=== PATIENT | male | born 1945 | race Caucasian/White ===

== ENCOUNTER 2018-02-11 14:43 | Observation (INO) | payer MEDICARE, BC ==
[2018-02-11] MEDS ORDERED: Sodium Chloride 0.9% 1,000 ML IV SCH (15:00)
--- NOTE | 2018-02-11 15:41 | EDM.PDOC ---
ED HPI GENERAL MEDICAL PROBLEM - General Chief Complaint: Cardiovascular Problem Stated Complaint: MEDICAL VIA AMBULANCE Time Seen by Provider: 02/11/18 14:55 Source of Information: Reports: Patient History Limitations: Reports: No Limitations - History of Present Illness INITIAL COMMENTS - FREE TEXT/NARRATIVE: pt passed out or [place] a near [place], He played golf and felt fine. He came in and started to feel strange. He got sweaty and tried to go to the [place] and fell before he got there.He never had any chest pain , Onset: Today Duration: Minutes:, Other (pt is feeling well at this time. ) Location: Reports: Other (pt had a near syncopal episode. ) Associated Symptoms: Reports: No Other Symptoms Treatments [employer]: Reports: Aspirin, Other (see below) Other Treatments [employer]: 324mg - Related Data Allergies Allergy/AdvReac Type Severity Reaction Status Date / Time monosodium glutamate Allergy Anaphylactic Verified 02/11/18 14:52 Shock Home Meds: Home Meds Allopurinol [Zyloprim] 100 mg PO DAILY 03/13/16 [History] Aspirin [Adult Low Dose Aspirin EC] 81 mg PO DAILY 03/13/16 [History] Mirtazapine [Remeron] 15 mg PO DAILY 03/13/16 [History] Sertraline [Zoloft] 100 mg PO DAILY 03/13/16 [History] Simvastatin [Zocor] 40 mg PO DAILY 03/13/16 [History] Vitamin B Complex 1 each PO DAILY 03/13/16 [History] metFORMIN [Glucophage] 1,000 mg PO DAILY 03/13/16 [History] Gabapentin [Neurontin] 300 mg PO DAILY 02/11/18 [History] Past Medical History HEENT History: Reports: Allergic Rhinitis, Hard of Hearing, Impaired Vision Cardiovascular History: Reports: Bypass, CAD, High Cholesterol Musculoskeletal History: Reports: Fracture Psychiatric History: Reports: Depression, PTSD Endocrine/Metabolic History: Reports: Diabetes, Type II Hematologic History: Reports: Blood Transfusion(s) - Infectious Disease History Infectious Disease History: Reports: Chicken Pox, Measles, Mumps - Past Surgical History Cardiovascular Surgical History: Reports: Coronary Artery Bypass GI Surgical History: Reports: Colonoscopy, Hernia, Inguinal Musculoskeletal Surgical History: Reports: Hip Replacement, ORIF Social & Family History - Tobacco Use Smoking Status *Q: Light Tobacco Smoker Years of Tobacco use: 20 Packs/Tins Daily: 0 Second Hand Smoke Exposure: No - Caffeine Use Caffeine Use: Reports: Coffee - Alcohol Use Days Per Week of Alcohol Use: 1 Number of Drinks Per Day: 1 Total Drinks Per Week: 1 - Recreational Drug Use Recreational Drug Use: No ED ROS GENERAL - Review of Systems Review Of Systems: See Below Constitutional: Reports: No Symptoms HEENT: Reports: No Symptoms Respiratory: Reports: No Symptoms Cardiovascular: Reports: No Symptoms Endocrine: Reports: No Symptoms GI/Abdominal: Reports: No Symptoms : Reports: No Symptoms Musculoskeletal: Reports: No Symptoms Skin: Reports: No Symptoms Neurological: Reports: Other (pt had a near syncopal episode. ) Psychiatric: Reports: No Symptoms ED EXAM, GENERAL - Physical Exam Exam: See Below Free Text/Narrative:: pt had a near [place]opal episode [place]. He had no chest pain he did get sweaty. Exam Limited By: No Limitations General Appearance: Alert, No Apparent Distress, Other (pupils are equal and resctive. ) Ears: Normal TMs Ear Exam: Bilateral Ear: Auricle Normal, Canal Normal, TM normal Nose: Normal Inspection Throat/Mouth: Normal Inspection Head: Atraumatic Neck: Normal Inspection Respiratory/Chest: No Respiratory Distress Cardiovascular: Regular Rate, Rhythm GI/Abdominal: Soft, Non-Tender (Male) Exam: Deferred Rectal (Males) Exam: Deferred Extremities: Normal Inspection Neurological: Alert, Oriented, Normal Cognition Psychiatric: Normal Affect Course - Vital Signs Last Recorded V/S: Last Vital Signs Temp 35.8 C 02/12/18 07:08 Pulse 76 02/12/18 07:08 Resp 16 02/12/18 07:08 BP 131/89 02/12/18 07:08 Pulse Ox 96 02/12/18 07:08 Orthostatic Blood Pressure [ 115/67 Standing] Orthostatic Blood Pressure [ 132/60 Sitting] Orthostatic Blood Pressure [ 123/70 Supine] - Orders/Labs/Meds Labs: Laboratory Tests 02/11/18 02/11/18 02/11/18 Range/Units 14:45 14:45 16:28 WBC 8.3 (4.5-11.0) K/uL RBC 4.48 (4.30-5.90) M/uL Hgb 13.8 (12.0-15.0) g/dL Hct 41.6 (40.0-54.0) % MCV 93 (80-98) fL MCH 31 (27-31) pg MCHC 33 (32-36) % Plt Count 233 (150-400) K/uL Neut % (Auto) 61 (36-66) % Lymph % (Auto) 29 (24-44) % [place] % (Auto) 8 H (2-6) % Eos % (Auto) 2 (2-4) % Baso % (Auto) 1 (0-1) % Sodium 142 (140-148) mmol/L Potassium 4.3 (3.6-5.2) mmol/L Chloride 105 (100-108) mmol/L Carbon Dioxide 23 (21-32) mmol/L Anion Gap 14.5 H (5.0-14.0) mmol/L BUN 11 (7-18) mg/dL Creatinine 1.3 (0.8-1.3) mg/dL Est Cr Clr Drug Dosing 53.03 mL/min Estimated GFR (MDRD) 54 L (>60) Glucose 148 H (74-106) mg/dL Calcium 8.5 (8.5-10.1) mg/dL Total Bilirubin 0.5 (0.2-1.0) mg/dL AST 18 (15-37) U/L ALT 18 (12-78) U/L Alkaline Phosphatase 57 (46-116) U/L Creatine Kinase 95 (39-308) U/L Troponin I 0.037 (0.000-0.056) ng/mL Total Protein 7.4 (6.4-8.2) g/dL Albumin 3.6 (3.4-5.0) g/dL Globulin 3.8 H (2.3-3.5) g/dL Albumin/Globulin Ratio 1.0 L (1.2-2.2) Urine Color Yellow Urine Appearance Slightly cloudy Urine pH 5.0 (4.5-8.0) Ur Specific [place] 1.025 (1.008-1.030) Urine Protein Trace (NEGATIVE) mg/dL Urine Glucose (UA) 250 H (NEGATIVE) mg/dL Urine Ketones Negative (NEGATIVE) mg/dL Urine Occult Blood Negative (NEGATIVE) Urine Nitrite Negative (NEGAITVE) Urine Bilirubin Small (NEGATIVE) Urine Urobilinogen 1 (NORMAL) mg/dL Ur Leukocyte Esterase Negative (NEGATIVE) Urine RBC 0-5 (0-5) Urine WBC Not seen (0-5) Ur Epithelial Cells Few Amorphous Sediment Moderate Urine Bacteria Moderate Urine Mucus Moderate Meds: Medications Discontinued Medications Generic Name Dose Route Start Last Admin Trade Name Freq PRN Reason Stop Dose Admin Acetaminophen 650 mg 02/11/18 18:06 Tylenol PO Q4H PRN Pain (Mild 1-3)/fever Allopurinol 100 mg 02/12/18 09:00 02/12/18 08:16 Zyloprim PO Not Given DAILY [facility] Aspirin 81 mg 02/12/18 09:00 02/12/18 08:16 Halfprin PO Not Given DAILY [facility] Dextrose 15 gm 02/11/18 18:06 Glutose 15 PO ONETIME PRN Hypoglycemia Dextrose/Water 50 ml 02/11/18 18:06 Dextrose 50% In Water IV ONETIME PRN Hypoglycemia Gabapentin 300 mg 02/12/18 09:00 02/12/18 08:16 Neurontin PO Not Given DAILY [facility] Sodium Chloride 1,000 mls @ 200 mls/hr 02/11/18 15:00 02/11/18 15:09 Normal Saline IV 200 mls/hr ASDIRECTED [facility] Administration Insulin Aspart 0 unit 02/11/18 20:00 02/12/18 07:31 Novolog SUBCUT Not Given QIDACANDBED [facility] Protocol Mirtazapine 15 mg 02/12/18 21:00 Remeron PO BEDTIME [facility] Non-Formulary Medication 1,000 mg 02/12/18 09:00 02/12/18 08:16 Metformin [Glucophage] PO Not Given DAILY [facility] Ondansetron HCl 4 mg 02/11/18 18:06 Zofran IV Q4H PRN Nausea/Vomiting Sertraline HCl 100 mg 02/12/18 09:00 02/12/18 08:16 Zoloft PO Not Given DAILY [facility] Simvastatin 40 mg 02/12/18 21:00 Zocor PO BEDTIME [facility] Sodium Chloride 10 ml 02/11/18 18:06 Saline Flush FLUSH ASDIRECTED PRN Keep Vein Open Vitamin B Complex 1 each 02/12/18 09:00 02/12/18 08:16 Vitamin B Complex PO Not Given DAILY [facility] - Re-Assessments/Exams Free Text/Narrative Re-Assessment/Exam: 02/11/18 16:27 pt had normal cardiac enzymes, he was mildly dehydrated. A cat scan of the head was obtained. His chest xray was normal. 02/14/18 07:16 The cat scan of the head was normal Departure - Departure Time of Disposition: 16:28 Disposition: Admitted As Inpatient 66 Condition: Fair Clinical Impression: Near syncope, Dehydration
--- NOTE | 2018-02-11 18:03 | PCM.HP ---
H&P History of Present Illness - General Date of Service: 02/11/18 Admit Problem/Dx: Admission Diagnosis/Problem Admission Diagnosis/Problem Vasovagal near-syncope Source of Information: Patient, Family, Provider, RN Notes Reviewed History Limitations: Reports: No Limitations - History of Present Illness Initial Comments - Free Text/Narative: This patient is a 72-year-old gentleman who is admitted to observation status for further evaluation and management of a near syncopal episode. He had traveled from [place] yesterday, reported that he did not have much to eat or drink on the plane or after he arrived home. This morning he got up and took his medications, had a cup of cappuccino for breakfast and then golfed 18 holes. While he was golfing he had one beer and then went [facility] [place] [employer] afterwards and had a second beer. He does report that the clubhouse was very warm, while he was sitting and having his. Began to feel very flushed and sweaty and weak. He got up to go to the bathroom, but because of lightheadedness weakness he fell to the floor. He does not think that he ever lost consciousness during this episode. He denies any previous history of syncopal episodes. He does have a known history of coronary artery disease and is status post coronary artery bypass surgery done approximately 4 years ago. He denies any symptoms of chest pain or pressure over the past few days or related to the episode of near syncope. - Related Data Allergies/Adverse Reactions: Allergies Allergy/AdvReac Type Severity Reaction Status Date / Time monosodium glutamate Allergy Anaphylactic Verified 02/11/18 14:52 Shock Home Medications: Home Meds Allopurinol [Zyloprim] 100 mg PO DAILY 03/13/16 [History] Aspirin [Adult Low Dose Aspirin EC] 81 mg PO DAILY 03/13/16 [History] Mirtazapine [Remeron] 15 mg PO DAILY 03/13/16 [History] Sertraline [Zoloft] 100 mg PO DAILY 03/13/16 [History] Simvastatin [Zocor] 40 mg PO DAILY 03/13/16 [History] Vitamin B Complex 1 each PO DAILY 03/13/16 [History] metFORMIN [Glucophage] 1,000 mg PO DAILY 03/13/16 [History] Gabapentin [Neurontin] 300 mg PO DAILY 02/11/18 [History] Past Medical History HEENT History: Reports: Allergic Rhinitis, Hard of Hearing, Impaired Vision Cardiovascular History: Reports: Bypass, CAD, High Cholesterol Musculoskeletal History: Reports: Fracture Psychiatric History: Reports: Depression, PTSD Endocrine/Metabolic History: Reports: Diabetes, Type II Hematologic History: Reports: Blood Transfusion(s) - Infectious Disease History Infectious Disease History: Reports: Chicken Pox, Measles, Mumps - Past Surgical History Cardiovascular Surgical History: Reports: Coronary Artery Bypass GI Surgical History: Reports: Colonoscopy, Hernia, Inguinal Musculoskeletal Surgical History: Reports: Hip Replacement, ORIF Social & Family History - Tobacco Use Smoking Status *Q: Light Tobacco Smoker Years of Tobacco use: 20 Packs/Tins Daily: 0 Second Hand Smoke Exposure: No - Caffeine Use Caffeine Use: Reports: Coffee - Alcohol Use Days Per Week of Alcohol Use: 1 Number of Drinks Per Day: 1 Total Drinks Per Week: 1 - Recreational Drug Use Recreational Drug Use: No H&P Review of Systems - Review of Systems: Review Of Systems: See Below General: Reports: Weakness, Diaphoresis. Denies: Fever, Chills HEENT: Reports: No Symptoms Pulmonary: Reports: No Symptoms Cardiovascular: Reports: Lightheadedness (Near-syncope). Denies: Chest Pain, Palpitations, Dyspnea on Exertion, Orthopnea, PND, Edema Gastrointestinal: Reports: No Symptoms Genitourinary: Reports: No Symptoms Musculoskeletal: Reports: No Symptoms Skin: Reports: No Symptoms Psychiatric: Reports: No Symptoms Neurological: Reports: No Symptoms Hematologic/Lymphatic: Reports: No Symptoms Immunologic: Reports: No Symptoms Exam - Exam Exam: See Below - Vital Signs Vital Signs: Last Vital Signs Temp 97.6 F 02/11/18 14:51 Pulse 69 02/11/18 16:27 Resp 15 02/11/18 16:27 BP 121/59 L 02/11/18 16:27 Pulse Ox 97 02/11/18 16:27 Orthostatic Blood Pressure [ 115/67 Standing] Orthostatic Blood Pressure [ 132/60 Sitting] Orthostatic Blood Pressure [ 123/70 Supine] Weight: 170 lb - Exam General: Alert, Oriented, Cooperative HEENT: Conjunctiva Clear, Hearing Intact, Mucosa Moist & [place], Normal Nasal Septum, Posterior Pharynx Clear, Pupils Equal, Pupils Reactive Neck: Supple, Trachea Midline, +2 Carotid Pulse wo Bruit Lungs: Clear to Auscultation, Normal Respiratory Effort Cardiovascular: Regular Rate, Regular Rhythm, Normal S1, Normal S2. No: Systolic Murmur, Diastolic Murmur GI/Abdominal Exam: Soft, Non-Tender, No Organomegaly, No Distention Extremities: Non-Tender, No Pedal Edema Skin: Warm, Dry, Intact Neurological: Cranial Nerves Intact, Strength Equal Bilateral, Normal Speech, Normal Tone, Sensation Intact. No: Focal Deficit Neuro Extensive - Mental Status: Alert, Oriented x3, Normal Mood/Affect, Normal Cognition, Memory Intact - Patient Data Lab Results Last 24 hrs: Laboratory Results - last 24 hr 02/11/18 02/11/18 02/11/18 Range/Units 14:45 14:45 16:28 WBC 8.3 (4.5-11.0) K/uL RBC 4.48 (4.30-5.90) M/uL Hgb 13.8 (12.0-15.0) g/dL Hct 41.6 (40.0-54.0) % MCV 93 (80-98) fL MCH 31 (27-31) pg MCHC 33 (32-36) % Plt Count 233 (150-400) K/uL Neut % (Auto) 61 (36-66) % Lymph % (Auto) 29 (24-44) % [place] % (Auto) 8 H (2-6) % Eos % (Auto) 2 (2-4) % Baso % (Auto) 1 (0-1) % Sodium 142 (140-148) mmol/L Potassium 4.3 (3.6-5.2) mmol/L Chloride 105 (100-108) mmol/L Carbon Dioxide 23 (21-32) mmol/L Anion Gap 14.5 H (5.0-14.0) mmol/L BUN 11 (7-18) mg/dL Creatinine 1.3 (0.8-1.3) mg/dL Est Cr Clr Drug Dosing 53.03 mL/min Estimated GFR (MDRD) 54 L (>60) Glucose 148 H (74-106) mg/dL Calcium 8.5 (8.5-10.1) mg/dL Total Bilirubin 0.5 (0.2-1.0) mg/dL AST 18 (15-37) U/L ALT 18 (12-78) U/L Alkaline Phosphatase 57 (46-116) U/L Creatine Kinase 95 (39-308) U/L Troponin I 0.037 (0.000-0.056) ng/mL Total Protein 7.4 (6.4-8.2) g/dL Albumin 3.6 (3.4-5.0) g/dL Globulin 3.8 H (2.3-3.5) g/dL Albumin/Globulin Ratio 1.0 L (1.2-2.2) Urine Color Yellow Urine Appearance Slightly cloudy Urine pH 5.0 (4.5-8.0) Ur Specific [place] 1.025 (1.008-1.030) Urine Protein Trace (NEGATIVE) mg/dL Urine Glucose (UA) 250 H (NEGATIVE) mg/dL Urine Ketones Negative (NEGATIVE) mg/dL Urine Occult Blood Negative (NEGATIVE) Urine Nitrite Negative (NEGAITVE) Urine Bilirubin Small (NEGATIVE) Urine Urobilinogen 1 (NORMAL) mg/dL Ur Leukocyte Esterase Negative (NEGATIVE) Urine RBC 0-5 (0-5) Urine WBC Not seen (0-5) Ur Epithelial Cells Few Amorphous Sediment Moderate Urine Bacteria Moderate Urine Mucus Moderate Result Diagrams: 02/11/18 14:45 02/11/18 14:45 *Q Meaningful Use (ADM) - VTE Risk Assess *Q Each Risk Factor Represents 1 Point: None Total Score 1 Point Risk Factors: 0 Each Risk Factor Represents 2 Points: Age 60 - 74 Years Total Score 2 Point Risk Factors: 2 Each Risk Factor Represents 3 Points: None Total Score 3 Point Risk Factors: 0 Each Risk Factor Represents 5 Points: None Total Score 5 Point Risk Factors: 0 Venous Thromboembolism Risk Factor Score *Q: 2 Problem List Initiated/Reviewed/Updated: Yes Orders Last 24hrs: Active Orders 24 hr Category Date Time Status Patient Status Manage Transfer [TRANSFER] Routine ADT 02/11/18 17:52 Ordered EKG Documentation Completion [RC] ASDIRECTED Care 02/11/18 14:45 Active Orthostatic Vital Signs [RC] ASDIRECTED Care 02/11/18 15:40 Active Chest 1V Frontal [CR] Stat Exams 02/11/18 14:53 Taken Head wo Cont [CT] Stat Exams 02/11/18 15:41 Taken UA W/MICROSCOPIC [URIN] Urgent Lab 02/11/18 16:28 Ordered Sodium Chloride 0.9% [Normal Saline] 1,000 ml Med 02/11/18 15:00 Active IV ASDIRECTED Resuscitation Status Routine Resus Stat 02/11/18 17:59 Ordered EKG 12 Lead [EK] Routine Ther 02/11/18 14:45 Ordered Medication Orders Sodium Chloride (Normal Saline) 1,000 mls @ 200 mls/hr IV ASDIRECTED CHRISTIN Last Admin: 02/11/18 15:09 Dose: 200 mls/hr Assessment/Plan Comment:: ASSESSMENT AND PLAN VASOVAGAL NEAR SYNCOPAL EPISODE-by description this sounds to be vasovagal, including symptoms of flushing and diaphoresis associated with weakness. Dehydration and hypoglycemia may have also been contributing factors. He denied any symptoms of chest pain or pressure. -Cardiac monitoring -Orthostatic vital signs -Serial troponin levels HISTORY OF CORONARY ARTERY DISEASE-currently asymptomatic TYPE 2 DIABETES MELLITUS -Continue current therapy with metformin -Low-dose sliding scale NovoLog -4 times a day glucometers MAINTENANCE ISSUES -DVT prophylaxis;Ambulation -GI prophylaxis;Not indicated -Kovacs catheter;Not indicated -Nutrition;Consistent carb diet -Nicotine dependence;Not required CODE STATUS-FULL CODE ADMISSION STATUS-this patient will be admitted to observation status, expect no more than a one night hospital stay for evaluation and management of problems as outlined above. DISPOSITION-anticipate discharge to home after the hospital stay. PRIMARY CARE PROVIDER-
[2018-02-11] MEDS ORDERED: Glucose Gel 15 GM in 37.5 GM Tube PO PRN (18:06)
[2018-02-11] MEDS ORDERED: Sodium Chloride 0.9% 10 ML Syringe FLUSH PRN (18:06)
[2018-02-11] MEDS ORDERED: Ondansetron 4 MG/2 ML SDV IV PRN (18:06)
[2018-02-11] MEDS ORDERED: 50% Dextrose in Water 50 ML Syringe IV PRN (18:06)
[2018-02-11] MEDS ORDERED: Acetaminophen 325 MG Tab PO PRN (18:06)
[2018-02-11] MEDS: Insulin Aspart 100 Units/ML 3 ML Pen SUBCUT SCH (21:07)
[2018-02-12 07:10] VITALS: BP 131/89
[2018-02-12] MEDS: Insulin Aspart 100 Units/ML 3 ML Pen SUBCUT SCH (07:31)
[2018-02-12] MEDS ORDERED: Allopurinol 100 MG Tab PO SCH (09:00)
[2018-02-12] MEDS ORDERED: Non-Formulary Medication 1 Each (Metformin [Glucophage] 1,000 MG) PO SCH (09:00)
[2018-02-12] MEDS ORDERED: Gabapentin 300 MG Cap PO SCH (09:00)
[2018-02-12] MEDS ORDERED: Aspirin 81 MG Tab.EC PO SCH (09:00)
[2018-02-12] MEDS ORDERED: Sertraline 50 MG Tab PO SCH (09:00)
[2018-02-12] MEDS ORDERED: Vitamin B Complex Tab PO SCH (09:00)
[2018-02-12] MEDS ORDERED: Non-Formulary Medication 1 Each (Vitamin B Complex [Vitamin B Complex] 1 EACH) PO SCH (09:00)
--- NOTE | 2018-02-12 09:23 | CR ---
CHEST: Portable CLINICAL HISTORY:Syncopal episode COMPARISON:None FINDINGS: Heart size is normal. There has been previous sternotomy. Pulmonary vascularity is unremar kable. There are atherosclerotic changes in the aorta.. No infiltrate effusion or pneumothorax is see n Impression: Previous Sternotomy No acute cardiopulmonary process.
--- NOTE | 2018-02-12 10:36 | PCM.DCSUM1 ---
Discharge Summary - Hospital Course Brief History: This patient is a 72-year-old gentleman who is admitted through the emergency department to observation status for further evaluation and management of a near syncopal episode. - Discharge Data Discharge Date: 02/12/18 Discharge Disposition: Home, Self-Care 01 Condition: Good - Discharge Diagnosis/Problem(s) (1) Vasovagal near syncope SNOMED Code(s): 045521374 ICD Code: R55 - SYNCOPE AND COLLAPSE Status: Acute Current Visit: Yes (2) Dehydration SNOMED Code(s): 36213741 ICD Code: E86.0 - DEHYDRATION Status: Acute Current Visit: Yes (3) Type 2 diabetes mellitus SNOMED Code(s): 29446752 ICD Code: E11.9 - TYPE 2 DIABETES MELLITUS WITHOUT COMPLICATIONS Status: Chronic Current Visit: No - Patient Summary/Data Hospital Course: This patient is a 72-year-old gentleman who was admitted to observation status for further evaluation and management of a near syncopal episode. He had traveled from [place] on the day prior to admission, reported that he did not have much to eat or drink on the plane or after he arrived home. On the morning of admission, he got up and took his medications, had a cup of cappuccino for breakfast and then golfed 18 holes. While he was golfing he had one beer and then went [facility] [employer] afterwards and had a second beer. He does report that the clubhouse was very warm, while he was sitting there began to feel very flushed and sweaty and weak. He got up to go to the bathroom, but because of lightheadedness weakness he fell to the floor. He does not think that he ever lost consciousness during this episode. He denies any previous history of syncopal episodes. He does have a known history of coronary artery disease and is status post coronary artery bypass surgery done approximately 4 years ago. He denies any symptoms of chest pain or pressure over the past few days or related to the episode of near syncope. He was admitted to the hospital and given IV fluids for hydration. Cardiac monitoring was used and showed no significant cardiac dysrhythmias during the course of his hospital stay. Orthostatic vital signs were obtained every 6 hours and showed no significant drop with change in position. Serial troponin levels were obtained in all would remained within normal range. On the morning of discharge felt well with no symptoms of lightheadedness, even when he been up and moving about his room. Was felt likely that the near syncopal episode was multifactorial with an element of vasovagal near syncope, dehydration, and possible hypoglycemia. Blood glucose levels were monitored throughout hospital stay and remained within desired range, he was continued on metformin and was also placed on low-dose sliding scale NovoLog. Activity will be as tolerated and he will resume his usual diabetic diet. Follow-up appointment will be scheduled with Dr. Benito within one week. - Patient Instructions Diet: Diabetic Diet Activity: As Tolerated Other/Special Instructions: Please schedule follow-up appointment with Dr. Benito within one week. - Discharge Plan Home Medications: Home Meds Allopurinol [Zyloprim] 100 mg PO DAILY 03/13/16 [History] Aspirin [Adult Low Dose Aspirin EC] 81 mg PO DAILY 03/13/16 [History] Mirtazapine [Remeron] 15 mg PO DAILY 03/13/16 [History] Sertraline [Zoloft] 100 mg PO DAILY 03/13/16 [History] Simvastatin [Zocor] 40 mg PO DAILY 03/13/16 [History] Vitamin B Complex 1 each PO DAILY 03/13/16 [History] metFORMIN [Glucophage] 1,000 mg PO DAILY 03/13/16 [History] Gabapentin [Neurontin] 300 mg PO DAILY 02/11/18 [History] Patient Handouts: Near-Syncope, [id number] Referrals: Suraj Benito Sr, MD [Physician] - 02/18/18 10:30 am - Discharge Summary/Plan Comment DC Time >30 min.: No - Patient Data Vitals - Most Recent: Last Vital Signs Temp 96.5 F 02/12/18 07:08 Pulse 76 02/12/18 07:08 Resp 16 02/12/18 07:08 BP 131/89 02/12/18 07:08 Pulse Ox 96 02/12/18 07:08 Orthostatic Blood Pressure [ 112/72 Standing] Orthostatic Blood Pressure [ 120/76 Sitting] Orthostatic Blood Pressure [ 123/78 Supine] Weight - Most Recent: 170 lb I&O - Last 24 hours: Intake & Output 02/11/18 02/12/18 02/12/18 22:59 06:59 14:59 Intake Total 240 Balance 240 Lab Results - Last 24 hrs: Laboratory Results - last 24 hr 02/11/18 02/11/18 02/11/18 Range/Units 14:45 14:45 16:28 WBC 8.3 (4.5-11.0) K/uL RBC 4.48 (4.30-5.90) M/uL Hgb 13.8 (12.0-15.0) g/dL Hct 41.6 (40.0-54.0) % MCV 93 (80-98) fL MCH 31 (27-31) pg MCHC 33 (32-36) % Plt Count 233 (150-400) K/uL Neut % (Auto) 61 (36-66) % Lymph % (Auto) 29 (24-44) % [place] % (Auto) 8 H (2-6) % Eos % (Auto) 2 (2-4) % Baso % (Auto) 1 (0-1) % Sodium 142 (140-148) mmol/L Potassium 4.3 (3.6-5.2) mmol/L Chloride 105 (100-108) mmol/L Carbon Dioxide 23 (21-32) mmol/L Anion Gap 14.5 H (5.0-14.0) mmol/L BUN 11 (7-18) mg/dL Creatinine 1.3 (0.8-1.3) mg/dL Est Cr Clr Drug Dosing 53.03 mL/min Estimated GFR (MDRD) 54 L (>60) Glucose 148 H (74-106) mg/dL Calcium 8.5 (8.5-10.1) mg/dL Total Bilirubin 0.5 (0.2-1.0) mg/dL AST 18 (15-37) U/L ALT 18 (12-78) U/L Alkaline Phosphatase 57 (46-116) U/L Creatine Kinase 95 (39-308) U/L Troponin I 0.037 (0.000-0.056) ng/mL Total Protein 7.4 (6.4-8.2) g/dL Albumin 3.6 (3.4-5.0) g/dL Globulin 3.8 H (2.3-3.5) g/dL Albumin/Globulin Ratio 1.0 L (1.2-2.2) Urine Color Yellow Urine Appearance Slightly cloudy Urine pH 5.0 (4.5-8.0) Ur Specific [place] 1.025 (1.008-1.030) Urine Protein Trace (NEGATIVE) mg/dL Urine Glucose (UA) 250 H (NEGATIVE) mg/dL Urine Ketones Negative (NEGATIVE) mg/dL Urine Occult Blood Negative (NEGATIVE) Urine Nitrite Negative (NEGAITVE) Urine Bilirubin Small (NEGATIVE) Urine Urobilinogen 1 (NORMAL) mg/dL Ur Leukocyte Esterase Negative (NEGATIVE) Urine RBC 0-5 (0-5) Urine WBC Not seen (0-5) Ur Epithelial Cells Few Amorphous Sediment Moderate Urine Bacteria Moderate Urine Mucus Moderate 02/11/18 02/12/18 Range/Units 22:53 05:15 WBC (4.5-11.0) K/uL RBC (4.30-5.90) M/uL Hgb (12.0-15.0) g/dL Hct (40.0-54.0) % MCV (80-98) fL MCH (27-31) pg MCHC (32-36) % Plt Count (150-400) K/uL Neut % (Auto) (36-66) % Lymph % (Auto) (24-44) % [place] % (Auto) (2-6) % Eos % (Auto) (2-4) % Baso % (Auto) (0-1) % Sodium (140-148) mmol/L Potassium (3.6-5.2) mmol/L Chloride (100-108) mmol/L Carbon Dioxide (21-32) mmol/L Anion Gap (5.0-14.0) mmol/L BUN (7-18) mg/dL Creatinine (0.8-1.3) mg/dL Est Cr Clr Drug Dosing mL/min Estimated GFR (MDRD) (>60) Glucose (74-106) mg/dL Calcium (8.5-10.1) mg/dL Total Bilirubin (0.2-1.0) mg/dL AST (15-37) U/L ALT (12-78) U/L Alkaline Phosphatase (46-116) U/L Creatine Kinase (39-308) U/L Troponin I 0.040 0.043 (0.000-0.056) ng/mL Total Protein (6.4-8.2) g/dL Albumin (3.4-5.0) g/dL Globulin (2.3-3.5) g/dL Albumin/Globulin Ratio (1.2-2.2) Urine Color Urine Appearance Urine pH (4.5-8.0) Ur Specific [place] (1.008-1.030) Urine Protein (NEGATIVE) mg/dL Urine Glucose (UA) (NEGATIVE) mg/dL Urine Ketones (NEGATIVE) mg/dL Urine Occult Blood (NEGATIVE) Urine Nitrite (NEGAITVE) Urine Bilirubin (NEGATIVE) Urine Urobilinogen (NORMAL) mg/dL Ur Leukocyte Esterase (NEGATIVE) Urine RBC (0-5) Urine WBC (0-5) Ur Epithelial Cells Amorphous Sediment Urine Bacteria Urine Mucus Med Orders - Current: Current Medications Acetaminophen (Tylenol) 650 mg PO Q4H PRN PRN Reason: Pain (Mild 1-3)/fever Allopurinol (Zyloprim) 100 mg PO DAILY [facility] Last Admin: 02/12/18 08:16 Dose: Not Given Aspirin (Halfprin) 81 mg PO DAILY [facility] Last Admin: 02/12/18 08:16 Dose: Not Given Dextrose (Glutose 15) 15 gm PO ONETIME PRN PRN Reason: Hypoglycemia Dextrose/Water (Dextrose 50% In Water) 50 ml IV ONETIME PRN PRN Reason: Hypoglycemia Gabapentin (Neurontin) 300 mg PO DAILY [facility] Last Admin: 02/12/18 08:16 Dose: Not Given Insulin Aspart (Novolog) 0 unit SUBCUT QIDACANDBED [facility]; Protocol Last Admin: 02/12/18 07:31 Dose: Not Given Mirtazapine (Remeron) 15 mg PO BEDTIME [facility] Non-Formulary Medication (Metformin [Glucophage]) 1,000 mg PO DAILY [facility] Last Admin: 02/12/18 08:16 Dose: Not Given Ondansetron HCl (Zofran) 4 mg IV Q4H PRN PRN Reason: Nausea/Vomiting Sertraline HCl (Zoloft) 100 mg PO DAILY [facility] Last Admin: 02/12/18 08:16 Dose: Not Given Simvastatin (Zocor) 40 mg PO BEDTIME [facility] Sodium Chloride (Saline Flush) 10 ml FLUSH ASDIRECTED PRN PRN Reason: Keep Vein Open Vitamin B Complex (Vitamin B Complex) 1 each PO DAILY [facility] Last Admin: 02/12/18 08:16 Dose: Not Given Discontinued Medications Sodium Chloride (Normal Saline) 1,000 mls @ 200 mls/hr IV ASDIRECTED [facility] Last Admin: 02/11/18 15:09 Dose: 200 mls/hr - Exam General: Reports: Alert, Oriented, Cooperative, No Acute Distress Lungs: Reports: Clear to Auscultation, Normal Respiratory Effort Cardiovascular: Reports: Regular Rate, Regular Rhythm, No Murmurs GI/Abdominal Exam: Soft, Non-Tender, No Organomegaly, No Distention Extremities: Non-Tender, No Pedal Edema
[2018-02-12] MEDS ORDERED: Mirtazapine 15 MG Tab PO SCH (21:00)
[2018-02-12] MEDS ORDERED: Simvastatin 20 MG Tab PO SCH (21:00)
== END 2018-02-12 10:45 | disposition home or self-care (01) ==
LOC: JP.ED 14:43 → JP.MS 17:52
PROVIDERS: ADMIT Hospitalist; ATTEND Hospitalist
DX: R55 Syncope and collapse (principal); E86.0 Dehydration; E11.9 Type 2 diabetes mellitus without complications; I25.10 Atherosclerotic heart disease of native coronary artery without angina pectoris; E78.00 Pure hypercholesterolemia, unspecified; J30.9 Allergic rhinitis, unspecified; F32.9 Major depressive disorder, single episode, unspecified; F17.290 Nicotine dependence, other tobacco product, uncomplicated; Z95.1 Presence of aortocoronary bypass graft; Z79.82 Long term (current) use of aspirin; Z79.899 Other long term (current) drug therapy; Z79.84 Long term (current) use of oral hypoglycemic drugs; Z91.02 Food additives allergy status
CPT/HCPCS: 36415; 70450; 71045; 80053; 81001; 82550; 82962; 84484; 85025; 93005; 96360; 96361; 99285; A9270; G0378; J7040

== ENCOUNTER 2021-05-22 07:08 | Emergency (ER) | payer BC, MEDICARE, OTHER ==
--- NOTE | 2021-05-22 07:35 | EDM.PDOC ---
<Nevin Kapadia - Last Filed: 05/22/21 09:32> ED HPI GENERAL MEDICAL PROBLEM - General Chief Complaint: Chest Pain Stated Complaint: SEVERE CHEST PAIN STARTED 2AM TODAY Time Seen by Provider: 05/22/21 07:20 Source of Information: Reports: Patient History Limitations: Reports: No Limitations - History of Present Illness INITIAL COMMENTS - FREE TEXT/NARRATIVE: 75 year old male with history of CAD and heart bypass arrives with epigastric pain. Pain seems to be located at the epigastrium with most significant pain noted to LUQ/ left anterolateral chest. He reports that he went to bed around 1130 pm last night and this pain in his upper abdomen woke him from sleeping. He reports the pain is radiating to his back, constant and feels like an ache. He rates it a 4/10 at this time. He denies SOB, cough, fever, nausea, vomiting, diaphoresis or other associated symptoms. He notes an episode of diarrhea but this is "normal" for him to have intermittent episodes of diarrhea. Onset: Today Onset Date: 05/22/21 Onset Time: 02:00 Duration: Hour(s): Location: Reports: Chest, Abdomen Quality: Reports: Ache Severity: Moderate Improves with: Reports: None Worsens with: Reports: None Context: Reports: Other Associated Symptoms: Reports: Other (nausea) - Related Data Allergies Allergy/AdvReac Type Severity Reaction Status Date / Time monosodium glutamate Allergy Anaphylactic Verified 05/22/21 07:27 Shock Home Meds: Home Meds Allopurinol [Zyloprim] 100 mg PO DAILY 03/13/16 [History] Aspirin [Adult Low Dose Aspirin EC] 81 mg PO DAILY 03/13/16 [History] Mirtazapine [Remeron] 15 mg PO DAILY 03/13/16 [History] Sertraline [Zoloft] 100 mg PO DAILY 03/13/16 [History] Simvastatin [Zocor] 40 mg PO DAILY 03/13/16 [History] Vitamin B Complex 1 each PO DAILY 03/13/16 [History] metFORMIN [Glucophage] 500 mg PO BID 03/13/16 [History] Gabapentin [Neurontin] 300 mg PO DAILY 02/11/18 [History] Past Medical History HEENT History: Reports: Allergic Rhinitis, Hard of Hearing, Impaired Vision Cardiovascular History: Reports: Bypass, CAD, High Cholesterol Musculoskeletal History: Reports: Fracture Psychiatric History: Reports: Depression, PTSD Endocrine/Metabolic History: Reports: Diabetes, Type II Hematologic History: Reports: Blood Transfusion(s) - Infectious Disease History Infectious Disease History: Reports: Chicken Pox, Measles, Mumps - Past Surgical History Cardiovascular Surgical History: Reports: Coronary Artery Bypass GI Surgical History: Reports: Colonoscopy, Hernia, Inguinal Musculoskeletal Surgical History: Reports: Hip Replacement, ORIF Social & Family History - Caffeine Use Caffeine Use: Reports: Coffee Other Caffeine Use: 6-7 per day ED ROS GENERAL - Review of Systems Review Of Systems: See Below Constitutional: Reports: No Symptoms. Denies: Fever, Chills, Malaise, Weakness HEENT: Reports: No Symptoms Respiratory: Reports: No Symptoms. Denies: Shortness of Breath, Cough Cardiovascular: Reports: Chest Pain. Denies: Edema Endocrine: Reports: No Symptoms. Denies: Fatigue GI/Abdominal: Reports: Abdominal Pain ( ), Diarrhea (reports some diarrhea but that is normal for him) : Denies: Dysuria, Frequency, Hematuria Musculoskeletal: Reports: No Symptoms. Denies: Neck Pain, Shoulder Pain, Arm Pain Skin: Reports: No Symptoms. Denies: Diaphoresis Neurological: Reports: No Symptoms. Denies: Confusion, Dizziness, Headache, Numbness, Weakness Psychiatric: Reports: No Symptoms Hematologic/Lymphatic: Reports: No Symptoms Immunologic: Reports: No Symptoms ED EXAM, GENERAL - Physical Exam Exam: See Below Free Text/Narrative:: Benson is well appearing resting on cart. He is alert and oriented, skin is warm, dry and normal color for race. Mucous membranes are moist. Respirations are regular and non labored. Lungs are clear throughout. No pedal edema, no abdominal distention or ascites. He has pain located at the epigastrium that radiates to his LUQ and is reproducible with palpation. His vital signs are stable. Exam Limited By: No Limitations General Appearance: Alert, WD/WN, No Apparent Distress Ears: Normal External Exam Nose: Normal Inspection, No Blood Throat/Mouth: Normal Inspection, No Airway Compromise Head: Atraumatic Neck: Full Range of Motion Respiratory/Chest: No Respiratory Distress, Lungs Clear, Normal Breath Sounds. No: Wheezing Cardiovascular: Normal Peripheral Pulses, No Edema GI/Abdominal: Normal Bowel Sounds, Soft, Tender (Male) Exam: Deferred Rectal (Males) Exam: Deferred Back Exam: Normal Inspection, Full Range of Motion Extremities: Normal Inspection, Normal Range of Motion, Non-Tender, No Pedal Edema. No: Pedal Edema Neurological: Alert, Oriented, Normal Cognition, Normal Gait Psychiatric: Normal Affect, Normal Mood Skin Exam: Warm, Dry, Intact, Normal Color, No Rash. No: Diaphoretic, Rash Lymphatic: No Adenopathy #1 Interpretation EKG Date: 05/22/21 Course - Vital Signs Text/Narrative:: cbc, cmp, lipase, troponin, and chest xray ordered. EKG appears normal. Patient agreeable to plan of care at this time. Departure - Departure Disposition: Home, Self-Care 01 Condition: Good Clinical Impression: Atypical chest pain Instructions: Nonspecific Chest Pain, Adult, [id number] Referrals: PCP,None [Primary Care Provider] - Forms: ED Department Discharge Additional Instructions: Your lab tests, chest xray, and CT scan did not show any specific reason for you to be having the pain that you are experiencing. Please take ibuprofen for the next couple days to help ease the pain. If you develop a rash, worsening chest pain, a change in chest pain, or any new symptoms please return for follow up. Sepsis Event Note (ED) - Evaluation Sepsis Screening Result: No Definite Risk <Dereck Leong - Last Filed: 05/22/21 14:05> Course - Vital Signs Last Recorded V/S: Last Vital Signs Temp 97.3 F 05/22/21 07:25 Pulse 68 05/22/21 08:32 Resp 11 L 05/22/21 08:32 BP 152/76 H 05/22/21 08:32 Pulse Ox 97 05/22/21 08:32 - Orders/Labs/Meds Orders: Active Orders 24 hr Category Date Time Status EKG 12 Lead [EK] Routine Ther 05/22/21 07:51 Ordered Labs: Laboratory Tests 05/22/21 05/22/21 Range/Units 07:30 07:39 WBC 11.7 H (4.5-11.0) K/uL RBC 4.58 (4.30-5.90) M/uL Hgb 13.7 (12.0-15.0) g/dL Hct 40.8 (40.0-54.0) % MCV 89 (80-98) fL MCH 30 (27-31) pg MCHC 34 (32-36) % Plt Count 240 (150-400) K/uL Neut % (Auto) 76.3 H (36-66) % Lymph % (Auto) 16.0 L (24-44) % [place] % (Auto) 6.6 H (2-6) % Eos % (Auto) 0.6 L (2-4) % Baso % (Auto) 0.5 (0-1) % Sodium 138 L (140-148) mmol/L Potassium 4.4 (3.6-5.2) mmol/L Chloride 103 (100-108) mmol/L Carbon Dioxide 22 (21-32) mmol/L Anion Gap 17.4 H (5.0-14.0) mmol/L BUN 14 (7-18) mg/dL Creatinine 1.2 (0.8-1.3) mg/dL Est Cr Clr Drug Dosing 54.05 mL/min Estimated GFR (MDRD) 59 L (>60) Glucose 165 H (74-106) mg/dL Calcium 8.9 (8.5-10.1) mg/dL Total Bilirubin 0.5 (0.2-1.0) mg/dL AST 10 L (15-37) U/L ALT 10 L (12-78) U/L Alkaline Phosphatase 79 (46-116) U/L Troponin I 0.028 (0.000-0.056) ng/mL Total Protein 7.4 (6.4-8.2) g/dL Albumin 3.3 L (3.4-5.0) g/dL Globulin 4.1 H (2.3-3.5) g/dL Albumin/Globulin Ratio 0.8 L (1.2-2.2) Lipase 119 (73-393) U/L Meds: Medications Discontinued Medications Generic Name Dose Route Start Last Admin Trade Name Freq PRN Reason Stop Dose Admin Sodium Chloride 100 mls @ 3 mls/sec 05/22/21 08:30 05/22/21 08:44 Normal Saline IV 3 mls/sec ASDIRECTED CHRISTIN Administration Iopamidol 100 ml 05/22/21 08:27 05/22/21 08:44 Iopamidol 612 Mg/Ml 100 Ml Bottle IV 05/23/21 08:28 100 ml . DIRECTED PRN Administration RADIOLOGY EXAM Ketorolac Tromethamine 15 mg 05/22/21 09:31 05/22/21 09:45 Ketorolac 30 Mg/Ml Sdv IVPUSH 05/22/21 09:32 15 mg ONETIME ONE Administration Sodium Chloride 10 ml 05/22/21 08:27 05/22/21 08:44 Sodium Chloride 0.9% 10 Ml Sdv FLUSH 05/22/21 08:28 10 ml ONETIME ONE Administration Departure - Departure Time of Disposition: 09:54 Sepsis Event Note (ED) - Focused Exam Vital Signs: Vital Signs Temp Pulse Resp BP Pulse Ox 05/22/21 08:32 68 11 L 152/76 H 97 05/22/21 07:45 66 16 144/79 H 96 05/22/21 07:25 97.3 F 71 20 160/76 H 95 05/22/21 07:23 97.3 F 71 20 160/76 H 95 Attestation - Student - Attestation Statement Attestation Statement: I personally performed or re-performed the physical examination and medical decision making. I have verified all student documentation or findings, including history, physical exam and/or medical decision making.
[2021-05-22] MEDS ORDERED: Sodium Chloride 0.9% 10 ML SDV FLUSH ONE (08:27)
[2021-05-22] MEDS ORDERED: Iopamidol 612 MG/ML 100 ML Bottle IV PRN (08:27)
[2021-05-22] MEDS ORDERED: Sodium Chloride 0.9% 100 ML IV SCH (08:30)
[2021-05-22 08:32] VITALS: BP 152/76; PULSE 68
[2021-05-22] MEDS ORDERED: Ketorolac 30 MG/ML SDV IVPUSH ONE (09:31)
--- NOTE | 2021-05-22 09:52 | CT ---
Chest Abdomen Pelvis w Cont CLINICAL HISTORY: Left upper quadrant pain TECHNIQUE: Transverse scans were obtained from the thoracic inlet to the lung bases with IV contrast. Auto dose reduction and iterative reconstruction techniques were employed COMPARISONS: None FINDINGS: Lung window images show no pulmonary mass or infiltrate. Soft tissue window images show low-attenuation nodules in the lower portion of both lobes of the thyroid. No mediastinal mass or suspicious lymphadenopathy is identified. There are atherosclerotic changes in the aorta.. Chest wall has a normal contour. CT ABDOMEN AND PEVIS WITH IV CONTRAST COMPARISON: None TECHNIQUE: Axial tomographic images are obtained from the dome of the diaphragm through the floor the pelvis with IV contrast enhancement. Oral contrast was used. FINDINGS: The livershows no mass or biliary dilatation. The gallbladder has a normal contour. The spleen contains 2 small well demarcated low-attenuation foci the largest measuring 1.0 x 1.3 cm. There are a few scattered granulomata. The pancreas shows no mass or inflammatory change. The adrenal glands appear normal bilaterally. The kidneys show no stones or hydronephrosis. There is a 5.1 x 4.4 cm cyst off the lower pole of the left kidney. There is a subcentimeter cyst just above this. The ureters have a normal course and caliber. The bladder has a normal contour. There are atherosclerotic changes in the aorta.. There is no suspicious retroperitoneal lymphadenopathy. Abdominal pelvic fat planes and low pelvic side galarza are well demarcated. Small intestinal configuration is nonacute. There is some diverticulosis without evidence of diverticulitis. There are small radiopacities in the lower abdominal peritoneal fat. These may be from previous hernia repair. IMPRESSION: Large cyst lower pole left kidney Low-attenuation foci in the posterior spleen appear to be small complex cysts.
--- NOTE | 2021-05-22 10:22 | CR ---
CHEST: 2 view CLINICAL HISTORY:Chest pain COMPARISON:2018 FINDINGS: Patient has had previous sternotomy. There are atherosclerotic changes in the aorta. The heart size, pulmonary vascularity and hilar structures are normal. No infiltrate effusion or pneumothorax is seen. IMPRESSION: No acute cardiopulmonary process.
== END 2021-05-22 09:54 | disposition home or self-care (01) ==
LOC: JP.ED 07:08
DX: R07.81 Pleurodynia (principal); R10.13 Epigastric pain; I25.810 Atherosclerosis of coronary artery bypass graft(s) without angina pectoris; E78.00 Pure hypercholesterolemia, unspecified; E11.9 Type 2 diabetes mellitus without complications; Z88.8 Allergy status to other drugs, medicaments and biological substances; Z79.82 Long term (current) use of aspirin; Z79.84 Long term (current) use of oral hypoglycemic drugs; Z79.899 Other long term (current) drug therapy
CPT/HCPCS: 36415; 71046; 71260; 74177; 80053; 83690; 84484; 85025; 93005; 96374; 99285; J1885; Q9967

== ENCOUNTER 2024-01-28 13:00 | Emergency (ER) | payer MEDICARE, OTHER ==
[2024-01-28 13:20] VITALS: BP 149/58; PULSE 83
== END 2024-01-28 14:04 | disposition home or self-care (01) ==
LOC: JP.ED 13:00
DX: E11.649 Type 2 diabetes mellitus with hypoglycemia without coma (principal); I25.10 Atherosclerotic heart disease of native coronary artery without angina pectoris; E78.00 Pure hypercholesterolemia, unspecified; E11.9 Type 2 diabetes mellitus without complications; Z91.018 Allergy to other foods; Z79.82 Long term (current) use of aspirin; Z79.899 Other long term (current) drug therapy; Z79.84 Long term (current) use of oral hypoglycemic drugs; Z95.1 Presence of aortocoronary bypass graft
CPT/HCPCS: 82947; 99284

== ENCOUNTER 2024-09-23 10:59 | Emergency (ER) | payer MEDICARE ==
[2024-09-23 11:11] VITALS: BP 149/73; PULSE 95
[2024-09-23 11:44] LABS: BASOPHILS ABSOLUTE AUTO 0.04 K/uL (0.00-0.10); BASOPHILS PERCENT AUTO 0.4 % (0.1-1.3); EOSINOPHILS ABSOLUTE AUTO 0.09 K/uL (0.00-0.40); EOSINOPHILS PERCENT AUTO 0.9 % (0.0-5.4); HEMATOCRIT 31.9 % (38.4-49.7); HEMOGLOBIN 10.9 g/dL (12.9-16.9); IMMATURE GRAN ABSOLUTE AUTO 0.04 K/uL (0.00-0.23); IMMATURE GRAN PERCENT AUTO 0.4 % (0.0-0.7); LYMPHOCYTES ABSOLUTE AUTO 1.61 K/uL (0.8-3.3); LYMPHOCYTES PERCENT AUTO 16.2 % (11.4-47.7); MEAN CORPUSCULAR HEMOGLOBIN 29.4 pg (31.6-35.5); MEAN CORPUSCULAR HGB CONC 34.2 g/dL (31.6-35.5); MONOCYTES ABSOLUTE AUTO 0.94 K/uL (0.20-0.90); MONOCYTES PERCENT AUTO 9.5 % (3.3-12.6); NEUTROPHILS PERCENT AUTO 72.6 % (40.0-78.1); PLATELET COUNT,PLT 240 K/uL (130-375); RED BLOOD CELL COUNT 3.71 M/uL (4.14-5.76); WHITE BLOOD CELL COUNT,WBC 9.9 K/uL (3.2-11.0)
== END 2024-09-23 14:20 ==
LOC: JP.ED 10:59
DX: M79.675 Pain in left toe(s) (principal); I25.10 Atherosclerotic heart disease of native coronary artery without angina pectoris; E78.00 Pure hypercholesterolemia, unspecified; E11.9 Type 2 diabetes mellitus without complications; Z95.1 Presence of aortocoronary bypass graft; Z79.84 Long term (current) use of oral hypoglycemic drugs; Z79.899 Other long term (current) drug therapy; Z79.82 Long term (current) use of aspirin; Z88.8 Allergy status to other drugs, medicaments and biological substances
CPT/HCPCS: 36415; 73660-26-LT; 73660-LT; 85025; 99284